=== PATIENT | male | born 1940 | race Caucasian/White ===

== ENCOUNTER 2020-06-07 08:57 | Inpatient (IN) ==
[2020-06-07] MEDS ORDERED: NITROGLYCERIN SL 0.4 MG TABLET SL ONE (09:19)
[2020-06-07] MEDS ORDERED: LIDOCAINE 1% 20 ML VIAL ONE (09:24)
[2020-06-07] MEDS ORDERED: MIDAZOLAM 2 MG/2 ML VIAL ONE (09:24)
[2020-06-07] MEDS ORDERED: fentaNYL 100 MCG/2 ML VIAL ONE (09:24)
[2020-06-07] MEDS ORDERED: TIROFIBAN 5,000 MCG/100 ML PREMIX IV ONE (09:30)
[2020-06-07 09:32] LABS: Basophils % 0.3 % (0.0-0.8); Hematocrit 48.5 VOL% (42.0-52.0); Hemoglobin 16.2 GM/DL (14.0-18.0); Immature Granulocytes % 0.3 %; Immature Granulocytes Absolute 0.04 #; Lymphocytes % 6.8 % (21.2-54.2); Mean Corpuscular HGB Conc 33.4 GM/DL (32-36); Mean Corpuscular Volume 87.4 FL (87-102); Mean Platelet Volume 9.5 FL (9.6-12.0); Monocytes % 4.9 % (1.7-12.7); Neutrophils % 87.7 % (38.7-73.9); Platelet Count 234 T/CUMM (130-400); Red Blood Count 5.55 MC/CUMM (3.8-5.5); Red Cell Distribution Width 13.2 % (9.3-17.3); White Blood Count 14.2 T/CUMM (4-12)
[2020-06-07 09:42] LABS: PT Patient Result 10.8 SECS (9.8-11.9)
[2020-06-07] MEDS ORDERED: diphenhydrAMINE CAP 25 MG CAPSULE PO ONE (09:48)
[2020-06-07] MEDS ORDERED: DIAZEPAM 5 MG TABLET PO ONE (09:48)
[2020-06-07] MEDS ORDERED: NITROGLYCERIN SL 0.4 MG TABLET SL PRN (09:48)
[2020-06-07] MEDS ORDERED: POTASSIUM CHLORIDE RIDER 10 MEQ in PREMIX 1 EACH IV PRN (09:48)
[2020-06-07] MEDS ORDERED: MAGNESIUM SULF RIDER 2 GM in PREMIX 1 EACH IV PRN ×2 (09:48→09:54)
[2020-06-07] MEDS ORDERED: ASPIRIN 325 MG TABLET PO ONE (09:48)
[2020-06-07] MEDS ORDERED: NITROGLYCERIN DRIP 50 MG/250 ML BOTTLE IV ONE (09:50)
[2020-06-07] MEDS ORDERED: VERAPAMIL 5 MG/2 ML VIAL ONE (09:51)
[2020-06-07] MEDS ORDERED: ENOXAPARIN 30 MG/0.3 ML SYRINGE ONE (09:53)
[2020-06-07] MEDS ORDERED: ZALEPLON 5 MG CAPSULE PO PRN (09:54)
[2020-06-07] MEDS ORDERED: DOCUSATE SODIUM 100 MG CAPSULE PO PRN (09:54)
[2020-06-07] MEDS ORDERED: MAGNESIUM SULF RIDER 4 GM in PREMIX 1 EACH IV PRN (09:54)
[2020-06-07] MEDS ORDERED: ACETAMINOPHEN 325 MG TABLET PO PRN (09:54)
[2020-06-07] MEDS ORDERED: hydrALAZINE 20 MG/1 ML VIAL IV PRN (09:54)
[2020-06-07] MEDS ORDERED: POTASSIUM CHLORIDE 20 MEQ TABLET PO PRN (09:54)
[2020-06-07] MEDS ORDERED: ONDANSETRON 4 MG/2 ML VIAL IV PRN (09:54)
[2020-06-07] MEDS ORDERED: ALUMINUM/MAGNES/SIMETH MAX STR 30 ML UDCUP PO PRN (09:54)
[2020-06-07 09:56] LABS: Albumin 4.3 G/DL (3.4-5.0); Bilirubin,Total 1.6 MG/DL (0.2-1.0); Calcium 9.2 MG/DL (8.5-10.1); Osmolality,Calculated 280.5 MOS/KG (273-304); Total Protein 7.9 G/DL (6.4-8.3)
[2020-06-07 10:25] LABS: CKMB % 9.6 %
[2020-06-07] MEDS ORDERED: TICAGRELOR 90 MG TABLET ONE (10:53)
[2020-06-07] MEDS ORDERED: ENOXAPARIN 30 MG/0.3 ML SYRINGE IV ONE (11:00)
[2020-06-07] MEDS ORDERED: ONDANSETRON 4 MG/2 ML VIAL ONE (11:09)
[2020-06-07 11:35] LABS: Bilirubin,Urine Negative (Negative); Blood, Urine Moderate mg/dL (Negative); Glucose,Urine (UA) 50 mg/dL (Negative); Ketones,Urine 5 mg/dL (Negative); Mucus,Urine Occasional /LPF (Occasional); Nitrite,Urine Negative (Negative); Protein,Urine 30 MG/DL; RBC,Urine 42 /HPF (0-4); Urine Appearance CLEAR (Clear); Urine Color Yellow (Yellow); Urine Specific Gravity > 1.060 (1.001-1.035); Urine Urobilinogen < 2.0 EU/DL (0.2-1.0); WBC,Urine <1 /HPF (0-6)
[2020-06-07 14:27] LABS: CKMB % 10.1 %
[2020-06-07 14:29] LABS: Troponin I > 200.000 NG/ML (0.00-0.045)
[2020-06-07] MEDS: carvediloL 3.125 MG TABLET PO SCH ×2 (14:50→22:00)
[2020-06-07] MEDS: SODIUM CHLORIDE 0.45% 1,000 ML IV SCH ×3 (14:50→23:26)
[2020-06-07 18:52] LABS: CKMB % 9.8 %
[2020-06-07 18:56] LABS: Troponin I > 200.000 NG/ML (0.00-0.045)
[2020-06-07] MEDS: TICAGRELOR 90 MG TABLET PO SCH (20:51)
[2020-06-07] MEDS: ROSUVASTATIN 20 MG TABLET PO SCH (20:51)
[2020-06-08] MEDS: SODIUM CHLORIDE 0.45% 1,000 ML IV SCH ×4 (02:00→23:56)
[2020-06-08 04:14] LABS: Basophils % 0.2 % (0.0-0.8); Eosinophils % 0.1 % (0.00-10.9); Hematocrit 40.9 VOL% (42.0-52.0); Hemoglobin 13.7 GM/DL (14.0-18.0); Immature Granulocytes % 0.4 %; Immature Granulocytes Absolute 0.05 #; Lymphocytes % 8.5 % (21.2-54.2); Mean Corpuscular HGB Conc 33.5 GM/DL (32-36); Mean Corpuscular Volume 87.4 FL (87-102); Monocytes % 10.6 % (1.7-12.7); Neutrophils % 80.2 % (38.7-73.9); Platelet Count 190 T/CUMM (130-400); Red Blood Count 4.68 MC/CUMM (3.8-5.5); Red Cell Distribution Width 13.5 % (9.3-17.3); White Blood Count 12.3 T/CUMM (4-12)
[2020-06-08 04:51] LABS: Calcium 8.1 MG/DL (8.5-10.1); Osmolality,Calculated 275.8 MOS/KG (273-304)
[2020-06-08 04:54] LABS: Risk Ratio 3.82; VLDL CHOLESTEROL 15.4 MG/DL
[2020-06-08] MEDS ORDERED: PANTOPRAZOLE 40 MG TABLET PO SCH (06:30)
[2020-06-08] MEDS: ASPIRIN EC 81 MG TABLET PO SCH (08:01)
[2020-06-08] MEDS: LOSARTAN 25 MG TABLET PO SCH (08:02)
[2020-06-08] MEDS: TICAGRELOR 90 MG TABLET PO SCH ×2 (08:02→20:49)
[2020-06-08] MEDS: ENOXAPARIN 40 MG/0.4 ML SYRINGE SUBCUT SCH (08:02)
[2020-06-08] MEDS: carvediloL 3.125 MG TABLET PO SCH (08:02)
[2020-06-08] MEDS ORDERED: INFLUENZA VIRUS VACCINE 0.5 ML SYRINGE IM ONE (09:00)
[2020-06-08] MEDS ORDERED: PNEUMOCOCCAL VACCINE (13 VALENT) 0.5 ML SYRINGE IM ONE (09:00)
[2020-06-08] MEDS: MORPHINE 4 MG/1 ML VIAL IV PRN (19:56)
[2020-06-08] MEDS: carvediloL 12.5 MG TABLET PO SCH (20:49)
[2020-06-08] MEDS: ROSUVASTATIN 20 MG TABLET PO SCH (20:49)
[2020-06-09] MEDS: MORPHINE 4 MG/1 ML VIAL IV PRN ×4 (00:07→22:52)
[2020-06-09 05:56] LABS: Calcium 8.1 MG/DL (8.5-10.1); Osmolality,Calculated 274.8 MOS/KG (273-304)
[2020-06-09 05:58] LABS: Basophils % 0.4 % (0.0-0.8); Eosinophils # 0.1 10*3/uL (0.0-0.87); Eosinophils % 0.6 % (0.00-10.9); Hematocrit 41.3 VOL% (42.0-52.0); Hemoglobin 13.7 GM/DL (14.0-18.0); Immature Granulocytes % 0.3 %; Immature Granulocytes Absolute 0.03 #; Lymphocytes # 1.3 10*3/uL (1.4-4.0); Lymphocytes % 13.2 % (21.2-54.2); Mean Corpuscular HGB Conc 33.2 GM/DL (32-36); Mean Corpuscular Volume 85.7 FL (87-102); Mean Platelet Volume 10.3 FL (9.6-12.0); Monocytes % 12.1 % (1.7-12.7); Neutrophils % 73.4 % (38.7-73.9); Platelet Count 171 T/CUMM (130-400); Red Blood Count 4.82 MC/CUMM (3.8-5.5); Red Cell Distribution Width 13.3 % (9.3-17.3)
[2020-06-09 06:14] LABS: CKMB % 1.1 %
[2020-06-09 06:16] LABS: Troponin I 70.6 NG/ML (0.00-0.045)
[2020-06-09] MEDS: carvediloL 12.5 MG TABLET PO SCH (09:37)
[2020-06-09] MEDS: LOSARTAN 25 MG TABLET PO SCH (09:37)
[2020-06-09] MEDS: TICAGRELOR 90 MG TABLET PO SCH ×2 (09:37→20:07)
[2020-06-09] MEDS: ASPIRIN EC 81 MG TABLET PO SCH (09:38)
[2020-06-09] MEDS: ENOXAPARIN 40 MG/0.4 ML SYRINGE SUBCUT SCH (09:38)
[2020-06-09] MEDS: PANTOPRAZOLE 40 MG TABLET PO SCH (09:38)
[2020-06-09] MEDS: SODIUM CHLORIDE 0.45% 1,000 ML IV SCH (10:05)
[2020-06-09] MEDS: ROSUVASTATIN 20 MG TABLET PO SCH (20:07)
[2020-06-09] MEDS: carvediloL 25 MG TABLET PO SCH (20:07)
[2020-06-10] MEDS: MORPHINE 4 MG/1 ML VIAL IV PRN (02:04)
[2020-06-10 05:32] LABS: Basophils % 0.4 % (0.0-0.8); Eosinophils # 0.3 10*3/uL (0.0-0.87); Eosinophils % 2.6 % (0.00-10.9); Hematocrit 43.8 VOL% (42.0-52.0); Hemoglobin 14.7 GM/DL (14.0-18.0); Immature Granulocytes % 0.5 %; Immature Granulocytes Absolute 0.05 #; Lymphocytes # 1.7 10*3/uL (1.4-4.0); Lymphocytes % 17.3 % (21.2-54.2); Mean Corpuscular HGB Conc 33.6 GM/DL (32-36); Mean Corpuscular Volume 86.7 FL (87-102); Mean Platelet Volume 10.3 FL (9.6-12.0); Neutrophils % 66.2 % (38.7-73.9); Platelet Count 197 T/CUMM (130-400); Red Blood Count 5.05 MC/CUMM (3.8-5.5); Red Cell Distribution Width 13.3 % (9.3-17.3); White Blood Count 9.9 T/CUMM (4-12)
[2020-06-10 05:43] LABS: Calcium 8.6 MG/DL (8.5-10.1); Osmolality,Calculated 274.8 MOS/KG (273-304)
[2020-06-10] MEDS ORDERED: INFLUENZA VIRUS VACCINE 0.5 ML SYRINGE IM ONE (09:00)
[2020-06-10] MEDS ORDERED: PNEUMOCOCCAL VACCINE (13 VALENT) 0.5 ML SYRINGE IM ONE (09:00)
[2020-06-10] MEDS: LOSARTAN 25 MG TABLET PO SCH (09:23)
[2020-06-10] MEDS: carvediloL 25 MG TABLET PO SCH (09:23)
[2020-06-10] MEDS: ENOXAPARIN 40 MG/0.4 ML SYRINGE SUBCUT SCH (09:24)
[2020-06-10] MEDS: ASPIRIN EC 81 MG TABLET PO SCH (09:24)
[2020-06-10] MEDS: PANTOPRAZOLE 40 MG TABLET PO SCH (09:24)
[2020-06-10] MEDS: TICAGRELOR 90 MG TABLET PO SCH (09:24)
[2020-06-10 11:57] VITALS: BP 106/67
== END 2020-06-10 16:13 | disposition home or self-care (01) | DRG 247 ==
LOC: N.ED 08:57 → N.ICU 09:31 → N.EDINP 09:54 → N.ICU 10:10 → N.TELEN 06-08 11:18
PROVIDERS: ADMIT Internal Medicine Cardiovascular Disease; ATTEND Internal Medicine Cardiovascular Disease
PROC: CLCCHCL (ICD-10-PCS; 2020-06-07 10:45)

== ENCOUNTER 2020-07-13 08:29 | Observation (INO) ==
[2020-07-13] MEDS ORDERED: FUROSEMIDE 100 MG/10 ML VIAL IV STA (08:47)
[2020-07-13] MEDS ORDERED: ONDANSETRON ODT 4 MG TABLET PO STA (08:47)
[2020-07-13] MEDS ORDERED: MORPHINE 4 MG/1 ML VIAL IV STA ×2 (08:49→09:05)
[2020-07-13] MEDS ORDERED: ONDANSETRON 4 MG/2 ML VIAL ONE (08:49)
[2020-07-13] MEDS ORDERED: NITROGLYCERIN SL 0.4 MG TABLET SL PRN ×2 (08:49→10:55)
[2020-07-13] MEDS ORDERED: MORPHINE 4 MG/1 ML VIAL ONE (08:50)
[2020-07-13] MEDS ORDERED: ONDANSETRON 4 MG/2 ML VIAL IV STA (09:01)
[2020-07-13 09:13] LABS: Basophils % 0.4 % (0.0-0.8); Eosinophils # 0.5 10*3/uL (0.0-0.87); Hematocrit 44.5 VOL% (42.0-52.0); Hemoglobin 14.6 GM/DL (14.0-18.0); Immature Granulocytes % 0.3 %; Immature Granulocytes Absolute 0.03 #; Lymphocytes # 2.3 10*3/uL (1.4-4.0); Lymphocytes % 22.7 % (21.2-54.2); Mean Corpuscular HGB Conc 32.8 GM/DL (32-36); Mean Corpuscular Volume 87.9 FL (87-102); Monocytes % 6.3 % (1.7-12.7); Neutrophils % 65.3 % (38.7-73.9); Platelet Count 251 T/CUMM (130-400); Red Blood Count 5.06 MC/CUMM (3.8-5.5); Red Cell Distribution Width 13.2 % (9.3-17.3); White Blood Count 10.2 T/CUMM (4-12)
[2020-07-13 09:33] LABS: Albumin 3.5 G/DL (3.4-5.0); Bilirubin,Total 0.9 MG/DL (0.2-1.0); Calcium 8.9 MG/DL (8.5-10.1); INR 1.1; Osmolality,Calculated 291.4 MOS/KG (273-304); PT Patient Result 11.8 SECS (9.8-11.9); Total Protein 7.2 G/DL (6.4-8.3)
[2020-07-13] MEDS ORDERED: DEXTROSE 50% 25 GM/50 ML VIAL IV PRN (10:36)
[2020-07-13] MEDS ORDERED: GLUCAGON 1 MG VIAL IM PRN (10:36)
[2020-07-13] MEDS ORDERED: MAGNESIUM SULF RIDER 2 GM in PREMIX 1 EACH IV PRN (10:42)
[2020-07-13] MEDS ORDERED: MAGNESIUM SULF RIDER 4 GM in PREMIX 1 EACH IV PRN (10:42)
[2020-07-13] MEDS ORDERED: ACETAMINOPHEN 325 MG TABLET PO PRN (10:42)
[2020-07-13] MEDS ORDERED: MORPHINE 4 MG/1 ML VIAL IV PRN (10:42)
[2020-07-13] MEDS ORDERED: hydrALAZINE 20 MG/1 ML VIAL IV PRN (10:42)
[2020-07-13] MEDS ORDERED: DOCUSATE SODIUM 100 MG CAPSULE PO PRN (10:42)
[2020-07-13] MEDS: ONDANSETRON 4 MG/2 ML VIAL IV PRN ×2 (11:00→15:12)
[2020-07-13] MEDS: ENOXAPARIN 40 MG/0.4 ML SYRINGE SUBCUT SCH (11:28)
[2020-07-13] MEDS ORDERED: INFLUENZA VIRUS VACCINE 0.5 ML SYRINGE IM ONE (13:03)
[2020-07-13] MEDS ORDERED: PNEUMOCOCCAL VACCINE (13 VALENT) 0.5 ML SYRINGE IM ONE (13:04)
[2020-07-13] MEDS: FUROSEMIDE 40 MG/4 ML VIAL IV SCH (15:12)
[2020-07-13] MEDS: ALBUTEROL/IPRATROPIUM 3 ML NEB RESP TX SCH ×2 (16:02→20:03)
[2020-07-13] MEDS: carvediloL 25 MG TABLET PO SCH (16:27)
[2020-07-13] MEDS: TICAGRELOR 90 MG TABLET PO SCH (21:13)
[2020-07-14] MEDS: ALBUTEROL/IPRATROPIUM 3 ML NEB RESP TX SCH ×4 (00:26→19:41)
[2020-07-14 06:51] LABS: Basophils % 0.5 % (0.0-0.8); Eosinophils # 0.3 10*3/uL (0.0-0.87); Eosinophils % 4.3 % (0.00-10.9); Hematocrit 38.5 VOL% (42.0-52.0); Hemoglobin 12.9 GM/DL (14.0-18.0); Immature Granulocytes % 0.4 %; Immature Granulocytes Absolute 0.03 #; Lymphocytes # 1.2 10*3/uL (1.4-4.0); Lymphocytes % 15.9 % (21.2-54.2); Mean Corpuscular HGB Conc 33.5 GM/DL (32-36); Mean Corpuscular Volume 86.7 FL (87-102); Mean Platelet Volume 11.6 FL (9.6-12.0); Monocytes % 10.6 % (1.7-12.7); Neutrophils % 68.3 % (38.7-73.9); Platelet Count 158 T/CUMM (130-400); Red Blood Count 4.44 MC/CUMM (3.8-5.5); Red Cell Distribution Width 13.2 % (9.3-17.3); White Blood Count 7.7 T/CUMM (4-12)
[2020-07-14 07:19] LABS: Bilirubin,Total 1.2 MG/DL (0.2-1.0); Calcium 8.5 MG/DL (8.5-10.1); Osmolality,Calculated 282.3 MOS/KG (273-304); Thyroid Stimulating Hormone 0.947 uIU/ml (0.358-3.74); Total Protein 6.4 G/DL (6.4-8.3)
[2020-07-14] MEDS: FUROSEMIDE 40 MG/4 ML VIAL IV SCH (09:31)
[2020-07-14] MEDS: ASPIRIN EC 81 MG TABLET PO SCH (09:31)
[2020-07-14] MEDS: LOSARTAN 25 MG TABLET PO SCH (09:31)
[2020-07-14] MEDS: PANTOPRAZOLE 40 MG TABLET PO SCH (09:31)
[2020-07-14] MEDS: carvediloL 25 MG TABLET PO SCH ×2 (09:31→17:40)
[2020-07-14] MEDS: ROSUVASTATIN 20 MG TABLET PO SCH (09:31)
[2020-07-14] MEDS: TICAGRELOR 90 MG TABLET PO SCH ×2 (09:31→21:29)
[2020-07-14] MEDS: ENOXAPARIN 40 MG/0.4 ML SYRINGE SUBCUT SCH (12:08)
[2020-07-14] MEDS ORDERED: SODIUM CHLORIDE 0.9% 500 ML IV ONE (13:48)
[2020-07-15] MEDS: ALBUTEROL/IPRATROPIUM 3 ML NEB RESP TX SCH ×4 (00:02→18:49)
[2020-07-15 06:17] LABS: Basophils % 0.7 % (0.0-0.8); Eosinophils # 0.5 10*3/uL (0.0-0.87); Eosinophils % 9.2 % (0.00-10.9); Hematocrit 36.8 VOL% (42.0-52.0); Hemoglobin 12.4 GM/DL (14.0-18.0); Immature Granulocytes % 0.3 %; Immature Granulocytes Absolute 0.02 #; Lymphocytes # 1.5 10*3/uL (1.4-4.0); Lymphocytes % 26.1 % (21.2-54.2); Mean Corpuscular HGB Conc 33.7 GM/DL (32-36); Mean Corpuscular Volume 85.6 FL (87-102); Mean Platelet Volume 11.1 FL (9.6-12.0); Monocytes % 10.5 % (1.7-12.7); Neutrophils % 53.2 % (38.7-73.9); Platelet Count 158 T/CUMM (130-400); Red Cell Distribution Width 13.3 % (9.3-17.3); White Blood Count 5.9 T/CUMM (4-12)
[2020-07-15 06:35] LABS: Bilirubin,Total 1.4 MG/DL (0.2-1.0); Calcium 8.3 MG/DL (8.5-10.1); Osmolality,Calculated 281.5 MOS/KG (273-304); Total Protein 6.2 G/DL (6.4-8.3)
[2020-07-15] MEDS: POTASSIUM CHLORIDE 20 MEQ TABLET PO PRN ×3 (06:53→11:40)
[2020-07-15] MEDS ORDERED: SODIUM CHLORIDE 0.9% 500 ML IV ONE (08:14)
[2020-07-15] MEDS: ASPIRIN EC 81 MG TABLET PO SCH (09:06)
[2020-07-15] MEDS: ROSUVASTATIN 20 MG TABLET PO SCH (09:07)
[2020-07-15] MEDS: LOSARTAN 25 MG TABLET PO SCH (09:07)
[2020-07-15] MEDS: TICAGRELOR 90 MG TABLET PO SCH ×2 (09:07→20:43)
[2020-07-15] MEDS: carvediloL 25 MG TABLET PO SCH (09:09)
[2020-07-15] MEDS: PANTOPRAZOLE 40 MG TABLET PO SCH (09:47)
[2020-07-15] MEDS: ENOXAPARIN 40 MG/0.4 ML SYRINGE SUBCUT SCH (11:40)
[2020-07-15] MEDS: SODIUM CHLORIDE 0.9% 1,000 ML IV SCH ×2 (11:41→13:58)
[2020-07-15] MEDS ORDERED: FUROSEMIDE 40 MG/4 ML VIAL IV SCH (16:00)
[2020-07-15] MEDS: carvediloL 3.125 MG TABLET PO SCH (17:50)
[2020-07-15] MEDS: SPIRONOLACTONE 25 MG TABLET PO SCH (20:41)
[2020-07-15] MEDS: SACUBITRIL/VALSARTAN 49-51 MG TABLET PO SCH (20:42)
[2020-07-16] MEDS: ALBUTEROL/IPRATROPIUM 3 ML NEB RESP TX SCH ×2 (01:35→07:15)
[2020-07-16 05:20] LABS: Basophils % 0.5 % (0.0-0.8); Eosinophils # 0.5 10*3/uL (0.0-0.87); Eosinophils % 8.2 % (0.00-10.9); Hematocrit 38.6 VOL% (42.0-52.0); Immature Granulocytes % 0.2 %; Immature Granulocytes Absolute 0.01 #; Lymphocytes # 1.4 10*3/uL (1.4-4.0); Lymphocytes % 22.7 % (21.2-54.2); Mean Corpuscular HGB Conc 33.7 GM/DL (32-36); Mean Corpuscular Volume 85.6 FL (87-102); Mean Platelet Volume 11.1 FL (9.6-12.0); Monocytes % 9.5 % (1.7-12.7); Neutrophils % 58.9 % (38.7-73.9); Platelet Count 164 T/CUMM (130-400); Red Blood Count 4.51 MC/CUMM (3.8-5.5); Red Cell Distribution Width 13.3 % (9.3-17.3); White Blood Count 6.3 T/CUMM (4-12)
[2020-07-16 05:37] LABS: Calcium 8.5 MG/DL (8.5-10.1); Osmolality,Calculated 280.4 MOS/KG (273-304)
[2020-07-16 05:42] LABS: Albumin 3.1 G/DL (3.4-5.0); Bilirubin,Total 1.3 MG/DL (0.2-1.0); Calcium 8.4 MG/DL (8.5-10.1); Osmolality,Calculated 281.4 MOS/KG (273-304); Total Protein 6.5 G/DL (6.4-8.3)
[2020-07-16 08:53] VITALS: BP 120/85
[2020-07-16] MEDS: carvediloL 3.125 MG TABLET PO SCH (10:06)
[2020-07-16] MEDS: SACUBITRIL/VALSARTAN 49-51 MG TABLET PO SCH (10:06)
[2020-07-16] MEDS: PANTOPRAZOLE 40 MG TABLET PO SCH (10:06)
[2020-07-16] MEDS: ASPIRIN EC 81 MG TABLET PO SCH (10:07)
[2020-07-16] MEDS: SPIRONOLACTONE 25 MG TABLET PO SCH (10:07)
[2020-07-16] MEDS: TICAGRELOR 90 MG TABLET PO SCH (10:07)
[2020-07-16] MEDS: ROSUVASTATIN 20 MG TABLET PO SCH (10:07)
[2020-07-16] MEDS: ENOXAPARIN 40 MG/0.4 ML SYRINGE SUBCUT SCH (12:11)
== END 2020-07-16 14:50 | disposition home or self-care (01) ==
LOC: N.EDINP 08:29 → N.ED 08:29 → N.EDINP 12:38 → N.TELES 12:54
PROVIDERS: ADMIT Internal Medicine; ATTEND Internal Medicine